=== PATIENT | male | born 1940 | race Caucasian/White ===

== ENCOUNTER 2018-09-02 07:44 | Inpatient (IN) | payer MEDICARE ==
--- NOTE | 2018-09-02 08:28 | ER Document Report ---
ED Fall - General Chief Complaint: Fall Stated Complaint: FALL,LEFT ANKLE PAIN Time Seen by Provider: 09/02/18 07:55 Primary Care Provider: DAVID ELLIS PA [NO LOCAL MD] - Follow up as needed Notes: 78-year-old male to emergency department chief complaint fall. Patient has severe dementia. Taking care of by his elderly . Falls all the time. EMS reportedly goes out to check on them all the time. EMS went out twice this morning. They placed his left ankle in a splint. The states that he has been falling more frequently and possible fever for the last couple of days. he is a DNR. TRAVEL OUTSIDE OF THE [place] IN LAST 30 DAYS: No - HPI Occurred: This morning Where: Home Context: Fell from sitting Associated symptoms: None Location of injury/pain: Ankle - Related data Allergies/Adverse Reactions: naproxen [From Naprosyn] Allergy (Verified 03/23/16 00:46) Past Medical History - General Information source: Patient - Social History Smoking Status: Unknown if Ever Smoked Frequency of alcohol use: None Drug Abuse: None Lives with: Spouse/Significant other Family History: Reviewed & Not Pertinent Patient has suicidal ideation: No Patient has homicidal ideation: No - Past Medical History Cardiac Medical History: Reports: Hx Hypercholesterolemia, Hx Hypertension Pulmonary Medical History: Reports: Hx COPD Neurological Medical History: Reports: Hx Cerebrovascular Accident Endocrine Medical History: Reports: Hx Diabetes Mellitus Type 1, Hx Diabetes Mellitus Type 2 Renal/ Medical History: Denies: Hx Peritoneal Dialysis Past Surgical History: Reports: Hx Appendectomy, Hx Cholecystectomy, Hx Neurologic Surgery - aneaursym clips Review of Systems - Review of Systems -: Yes ROS unobtainable due to patient's medical condition - Due to severe dementia Physical Exam - Vital signs Vitals: Temp Pulse Resp BP 97.7 F 88 20 98/59 L 09/02/18 07:59 09/02/18 07:59 09/02/18 07:59 09/02/18 07:59 Interpretation: Normal - General General appearance: Lethargic In distress: None - HEENT Head: Normocephalic, Atraumatic Eyes: Normal Pupils: PERRL - Respiratory Respiratory status: No respiratory distress Chest status: Nontender Breath sounds: Nonproductive cough Chest palpation: Normal - Cardiovascular Rhythm: Regular Heart sounds: Normal auscultation Murmur: No - Abdominal Inspection: Normal Distension: No distension Bowel sounds: Normal Tenderness: Nontender Organomegaly: No organomegaly - Extremities General upper extremity: Normal inspection, Tender, Normal color. No: Edema General lower extremity: Nontender, Normal ROM, Other - Have some bruising noted to the left ankle.. No: Edema - Neurological Cognition: Confused, Short term memory loss - Skin Skin Temperature: Warm Skin Moisture: Dry Skin Color: Normal Course - Re-evaluation Re-evalutation: 09/02/18 10:08 Laboratory 09/02/18 09/02/18 09/02/18 08:22 08:22 08:42 WBC 13.0 H RBC 4.28 L Hgb 12.6 L Hct 37.4 L MCV 87 MCH 29.4 MCHC 33.6 RDW 14.6 H Plt Count 206 Seg Neutrophils % 82.1 H Lymphocytes % 9.1 L Monocytes % 7.8 Eosinophils % 0.7 Basophils % 0.3 Absolute Neutrophils 10.7 H Absolute Lymphocytes 1.2 Absolute Monocytes 1.0 Absolute Eosinophils 0.1 Absolute Basophils 0.0 Sodium 141.1 Potassium 4.2 Chloride 106 Carbon Dioxide 26 Anion Gap 9 BUN 31 H Creatinine 1.20 Est GFR ( Amer) > 60 Est GFR (Non-Af Amer) 59 L Glucose 168 H Calcium 9.3 Total Bilirubin 0.9 Direct Bilirubin 0.1 Neonat Total Bilirubin Not Reportable Neonat Direct Bilirubin Not Reportable Neonat Indirect Bili Not Reportable AST 25 ALT 32 Alkaline Phosphatase 79 Total Protein 6.1 L Albumin 3.5 Urine Color YELLOW Urine Appearance CLEAR Urine pH 5.0 Ur Specific [place] 1.027 Urine Protein NEGATIVE Urine Glucose (UA) NEGATIVE Urine Ketones TRACE H Urine Blood NEGATIVE Urine Nitrite NEGATIVE Urine Bilirubin NEGATIVE Urine Urobilinogen 2.0 H Ur Leukocyte Esterase NEGATIVE Urine WBC (Auto) 2 Urine RBC (Auto) 0 U Hyaline Cast (Auto) 1 Urine Mucus (Auto) MANY Urine Ascorbic Acid NEGATIVE Ankle X-Ray 09/02/18 08:14 IMPRESSION: NEGATIVE STUDY OF THE LEFT ANKLE. NO RADIOGRAPHIC EVIDENCE OF ACUTE INJURY. Chest X-Ray 09/02/18 08:14 IMPRESSION: Bibasilar pneumonia left greater than right. Cardiac enlargement without failure. Pelvis X-Ray 09/02/18 08:30 IMPRESSION: No acute findings Patient with elevated WBC count, low-grade fever at home and chest x-ray consistent with pneumonia. Will start on antibiotics at this time. Consulted with family member and they are comfortable with this plan. Will admit shortly. - Vital Signs Vital signs: Temp Pulse Resp BP Pulse Ox 97.7 F 88 20 98/59 L 09/02/18 07:59 09/02/18 07:59 09/02/18 07:59 09/02/18 07:59 - Laboratory Result Diagrams: 09/02/18 08:22 09/02/18 08:22 Laboratory results interpreted by me: 09/02/18 09/02/18 09/02/18 08:22 08:22 08:42 WBC 13.0 H RBC 4.28 L Hgb 12.6 L Hct 37.4 L RDW 14.6 H Seg Neutrophils % 82.1 H Lymphocytes % 9.1 L Absolute Neutrophils 10.7 H BUN 31 H Est GFR (Non-Af Amer) 59 L Glucose 168 H Total Protein 6.1 L Urine Ketones TRACE H Urine Urobilinogen 2.0 H Discharge - Discharge Clinical Impression: Pneumonia of both lower lobes Qualifiers: Pneumonia type: due to unspecified organism Qualified Code(s): J18.1 - Lobar pneumonia, unspecified organism Disposition: ADMITTED INPATIENT Admitting Provider: Hospitalist - [facility] Admitted: Medical Floor Referrals: DAVID ELLIS PA [NO LOCAL MD] - Follow up as needed
[2018-09-02 08:33] LABS: ABSOLUTE EOSINOPHILS # (AUTO) 0.1 10^3/uL (0.0-0.6); ABSOLUTE LYMPHOCYTES (AUTO) 1.2 10^3/uL (0.5-4.7); ABSOLUTE NEUT (AUTO) 10.7 10^3/uL (1.7-8.2); BASOPHILS % (AUTO) 0.3 % (0-2); EOSINOPHILS % (AUTO) 0.7 % (0-6); HEMATOCRIT 37.4 % (37.9-51.0); HEMOGLOBIN 12.6 g/dL (13.5-17.0); LYMPHOCYTES % (AUTO) 9.1 % (13-45); MEAN CORPUSCULAR HEMOGLOBIN 29.4 pg (27.0-33.4); MEAN CORPUSCULAR HGB CONC 33.6 g/dL (32.0-36.0); MEAN CORPUSCULAR VOLUME 87 fl (80-97); MONOCYTES % (AUTO) 7.8 % (3-13); PLATELET COUNT 206 10^3/uL (150-450); RED BLOOD COUNT 4.28 10^6/uL (4.35-5.55); RED CELL DISTRIBUTION WIDTH 14.6 % (11.5-14.0); SEGMENTED NEUTROPHILS % (AUTO) 82.1 % (42-78); TOTAL CELLS COUNTED % (AUTO) 100 %
--- NOTE | 2018-09-02 08:48 | RADIOLOGY REPORT (SQ) ---
EXAM DESCRIPTION: ANKLE LEFT AP/LATERAL COMPLETED DATE/TIME: 09/02/2018 8:37 am REASON FOR STUDY: fall pain COMPARISON: None. NUMBER OF VIEWS: Two views. TECHNIQUE: AP and lateral radiographic images acquired of the left ankle. LIMITATIONS: None. FINDINGS: MINERALIZATION: Normal. BONES: No acute fracture or dislocation. No worrisome bone lesions. JOINTS: No effusions. SOFT TISSUES: No soft tissue swelling. No foreign body. OTHER: No other significant finding. IMPRESSION: NEGATIVE STUDY OF THE LEFT ANKLE. NO RADIOGRAPHIC EVIDENCE OF ACUTE INJURY. TECHNICAL DOCUMENTATION: JOB ID: [id number] [employer]- All Rights Reserved Reading location - IP/workstation name: [email or web address]
--- NOTE | 2018-09-02 08:48 | RADIOLOGY REPORT (SQ) ---
EXAM DESCRIPTION: CHEST SINGLE VIEW COMPLETED DATE/TIME: 09/02/2018 8:37 am REASON FOR STUDY: sob, fever COMPARISON: 09/19/2015 EXAM PARAMETERS: NUMBER OF VIEWS: One view. TECHNIQUE: Single frontal radiographic view of the chest acquired. RADIATION DOSE: NA LIMITATIONS: None. FINDINGS: LUNGS AND PLEURA: Interval development of bibasilar opacities. No effusions. MEDIASTINUM AND HILAR STRUCTURES: No masses. Contour normal. HEART AND VASCULAR STRUCTURES: Heart enlarged. BONES: No acute findings. HARDWARE: None in the chest. OTHER: No other significant finding. IMPRESSION: Bibasilar pneumonia left greater than right. Cardiac enlargement without failure. TECHNICAL DOCUMENTATION: JOB ID: [id number] [employer]- All Rights Reserved Reading location - IP/workstation name: [email or web address]
[2018-09-02 08:52] LABS: ALANINE AMINOTRANSFERASE 32 U/L (21-72); ALBUMIN 3.5 g/dL (3.5-5.0); ALKALINE PHOSPHATASE 79 U/L (38-126); ANION GAP 9 (5-19); ASPARTATE AMINO TRANSFERASE 25 U/L (17-59); BILIRUBIN,DIRECT 0.1 mg/dL (0.0-0.4); BILIRUBIN,TOTAL 0.9 mg/dL (0.2-1.3); BLOOD UREA NITROGEN 31 mg/dL (7-20); CALCIUM 9.3 mg/dL (8.4-10.2); CARBON DIOXIDE 26 mmol/L (22-30); CHLORIDE 106 mmol/L (98-107); GLUCOSE 168 mg/dL (75-110); POTASSIUM 4.2 mmol/L (3.6-5.0); SODIUM 141.1 mmol/L (137-145); TOTAL PROTEIN 6.1 g/dL (6.3-8.2)
[2018-09-02 09:16] LABS: APPEARANCE,URINE CLEAR; BILIRUBIN,URINE NEGATIVE (NEGATIVE); COLOR,URINE YELLOW; GLUCOSE, URINE NEGATIVE (NEGATIVE); KETONES,URINE TRACE mg/dL (NEGATIVE); LEUKOCYTE ESTERASE,URINE NEGATIVE (NEGATIVE); NITRITE,URINE NEGATIVE (NEGATIVE); PROTEIN,URINE NEGATIVE (NEGATIVE); URINE SPECIFIC GRAVITY 1.027
--- NOTE | 2018-09-02 09:23 | RADIOLOGY REPORT (SQ) ---
EXAM DESCRIPTION: PELVIS AP COMPLETED DATE/TIME: 09/02/2018 9:11 am REASON FOR STUDY: fall, pain COMPARISON: None. NUMBER OF VIEWS: One view TECHNIQUE: AP Pelvis LIMITATIONS: None. FINDINGS: MINERALIZATION: Osteopenia. HIPS: No acute fracture or dislocation. No worrisome bone lesions. PELVIS AND SACRUM: No acute fracture or dislocation. No worrisome bone lesions. PUBIS AND ISCHIUM: No acute fracture. LOWER LUMBAR SPINE: Marked degenerative changes. SOFT TISSUES: Aortic stent graft. OTHER: No other significant finding. IMPRESSION: No acute findings COMMENT: Pelvic fractures are often occult on plain radiographs. If strong clinical suspicion for f racture, recommend CT or MR. TECHNICAL DOCUMENTATION: JOB ID: [id number] [facility] [employer]- All Rights Reserved Reading location - IP/workstation name: [email or web address]
[2018-09-02] MEDS ORDERED: AZITHROMYCIN INJ 500 MG VIAL IV ONE (10:07)
[2018-09-02] MEDS ORDERED: CEFTRIAXONE INJ 1000 MG VIAL IV ONE (10:07)
[2018-09-02] MEDS ORDERED: NORMAL SALINE 1000 ML 1,000 ML IV ONE (10:16)
[2018-09-02] MEDS ORDERED: GUAIFENESIN SYRP 200 MG/10 ML UDC PO PRN (12:14)
[2018-09-02] MEDS ORDERED: ACETAMINOPHEN 325 MG TABLET PO PRN (12:14)
[2018-09-02] MEDS ORDERED: ALBUTEROL SULFATE 0.083% NEB 2.5 MG/3 ML AMPUL NEB PRN (12:14)
[2018-09-02] MEDS ORDERED: DEXTROSE 40% GEL 15 GM TUBE PO PRN ×2 (12:19)
[2018-09-02] MEDS ORDERED: DEXTROSE 50%-WATER 25 GM/50 ML DISP.SYRIN IV PRN ×2 (12:19)
[2018-09-02] MEDS ORDERED: GLUCAGON,HUMAN RECOMB 1 MG INJ IM PRN (12:19)
[2018-09-02] MEDS ORDERED: IBUPROFEN 400 MG TABLET PO PRN (12:37)
--- NOTE | 2018-09-02 12:39 | PDOC H&P ---
History of Present Illness Admission Date/PCP: 09/02/18 10:43 Patient complains of: fall, increased fatigue History of Present Illness: ANAND HORVATH is a 78 year old male with a past medical history of advanced dementia, CVA, brain aneurysms, AAA, hypertension, hyperlipidemia, DM 2, GERD, and chronic back pain presented to the emergency department by EMS after a fall at home. The patient's reports that the patient has fallen 4-5 times over the previous week. She reports that he has had increased lethargy, decreased appetite times 4 days, and little fluid intake over the last 24 hours. She reports that he has been running a low-grade temperature (100.2) and has had a nonproductive cough for 1-2 days. Evaluation in the emergency department revealed bibasilar pneumonia with leukocytosis (WBCs 13), baseline anemia (Hgb 12.6), unremarkable chemistry other than slightly elevated BUN (31), normal lactic acid, unremarkable urinalysis, and normal ankle and pelvic x-rays. He is referred to the hospitalist service for admission and management of pneumonia. The patient's , daughter, son-in-law expressed interest in meeting with a social work team to discuss palliative/hospice services as the patient's needs are now beginning to exceed his 's ability to care for him at home. They confirmed DNR/DNI status and request focus on comfort measures with addition of IV antibiotic therapies as indicated. 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 Endocrine Medical History: Reports: Diabetes Mellitus Type 2 Renal/ Medical History: Reports: None Malignancy Medical History: Reports: None GI Medical History: Reports: Gastroesophageal Reflux Disease Musculoskeltal Medical History: Reports: Arthritis Psychiatric Medical History: Reports: Dementia Traumatic Medical History: Reports: None Hematology: Reports: Anemia Infectious Medical History: Reports: None Past Surgical History Past Surgical History: Reports: Appendectomy, Cholecystectomy Social History Information Source: Relative Lives with: Spouse/Significant other Smoking Status: Unknown if Ever Smoked Frequency of Alcohol Use: None Hx Recreational Drug Use: No Drugs: None Hx Prescription Drug Abuse: No - Advance Directive Resuscitation Status: Do Not Resuscitate Surrogate healthcare decision maker:: The patient's , Melly Horvath, Family History Family History: Reviewed & Not Pertinent Parental Family History Reviewed: Yes Children Family History Reviewed: Yes Sibling(s) Family History Reviewed.: Yes Medication/Allergy Home Medications: Atorvastatin Calcium 10 mg PO DAILY 03/22/16 Collagenase Clostridium Hist. [Santyl Ointment 30 gm] 1 applic TP DAILY 03/22/16 Metformin HCl 500 mg PO DAILY 03/22/16 Omeprazole 20 mg PO DAILY 03/22/16 Tamsulosin HCl 0.4 mg PO DAILY 03/22/16 Verapamil HCl [Verapamil ER] 240 mg PO DAILY 03/22/16 Allergies/Adverse Reactions: naproxen [From Naprosyn] Allergy (Verified 03/23/16 00:46) Review of Systems ROS unobtainable: Due to mental status Physical Exam Vital Signs: Temp Pulse Resp BP Pulse Ox 97.7 F 88 19 134/74 H 94 09/02/18 07:59 09/02/18 07:59 09/02/18 11:31 09/02/18 11:31 09/02/18 11:31 Intake & Output 09/01/18 09/02/18 09/03/18 06:59 06:59 06:59 Weight 80 kg General appearance: PRESENT: disheveled, mild distress - Lethargic, acutely ill- appearing, well-developed, well-nourished - Overweight Head exam: PRESENT: atraumatic, normocephalic Eye exam: PRESENT: conjunctiva pink, EOMI, PERRLA. ABSENT: scleral icterus Ear exam: PRESENT: normal external ear exam Mouth exam: PRESENT: moist, tongue midline Neck exam: ABSENT: carotid bruit, JVD, lymphadenopathy, thyromegaly Respiratory exam: PRESENT: accessory muscle use, prolonged expiratory phas, rhonchi - Throughout, symmetrical, tachypnea. ABSENT: rales, wheezes Cardiovascular exam: PRESENT: RRR, +S1, +S2. ABSENT: diastolic murmur, rubs, systolic murmur Pulses: PRESENT: normal dorsalis pedis pul Vascular exam: PRESENT: normal capillary refill GI/Abdominal exam: PRESENT: normal bowel sounds, soft. ABSENT: distended, guarding, mass, organolmegaly, rebound, tenderness Rectal exam: PRESENT: deferred Extremities exam: PRESENT: full ROM. ABSENT: calf tenderness, clubbing, pedal edema Neurological exam: PRESENT: oriented to person, CN II-XII grossly intact, other - Arousable, oriented to self, answers simple questions appropriately. ABSENT: motor sensory deficit Psychiatric exam: PRESENT: appropriate affect, normal mood. ABSENT: homicidal ideation, suicidal ideation Skin exam: PRESENT: dry, intact, warm. ABSENT: cyanosis, rash Results Laboratory Results: 09/02/18 08:22 09/02/18 08:22 09/02/18 09/02/18 09/02/18 08:22 08:22 08:42 WBC 13.0 H RBC 4.28 L Hgb 12.6 L Hct 37.4 L MCV 87 MCH 29.4 MCHC 33.6 RDW 14.6 H Plt Count 206 Seg Neutrophils % 82.1 H Lymphocytes % 9.1 L Monocytes % 7.8 Eosinophils % 0.7 Basophils % 0.3 Absolute Neutrophils 10.7 H Absolute Lymphocytes 1.2 Absolute Monocytes 1.0 Absolute Eosinophils 0.1 Absolute Basophils 0.0 Sodium 141.1 Potassium 4.2 Chloride 106 Carbon Dioxide 26 Anion Gap 9 BUN 31 H Creatinine 1.20 Est GFR ( Amer) > 60 Est GFR (Non-Af Amer) 59 L Glucose 168 H Lactic Acid Calcium 9.3 Total Bilirubin 0.9 AST 25 ALT 32 Alkaline Phosphatase 79 Total Protein 6.1 L Albumin 3.5 Urine Color YELLOW Urine Appearance CLEAR Urine pH 5.0 Ur Specific [place] 1.027 Urine Protein NEGATIVE Urine Glucose (UA) NEGATIVE Urine Ketones TRACE H Urine Blood NEGATIVE Urine Nitrite NEGATIVE Ur Leukocyte Esterase NEGATIVE Urine WBC (Auto) 2 Urine RBC (Auto) 0 09/02/18 10:40 WBC RBC Hgb Hct MCV MCH MCHC RDW Plt Count Seg Neutrophils % Lymphocytes % Monocytes % Eosinophils % Basophils % Absolute Neutrophils Absolute Lymphocytes Absolute Monocytes Absolute Eosinophils Absolute Basophils Sodium Potassium Chloride Carbon Dioxide Anion Gap BUN Creatinine Est GFR ( Amer) Est GFR (Non-Af Amer) Glucose Lactic Acid 1.2 Calcium Total Bilirubin AST ALT Alkaline Phosphatase Total Protein Albumin Urine Color Urine Appearance Urine pH Ur Specific [place] Urine Protein Urine Glucose (UA) Urine Ketones Urine Blood Urine Nitrite Ur Leukocyte Esterase Urine WBC (Auto) Urine RBC (Auto) Impressions: Ankle X-Ray 09/02/18 08:14 IMPRESSION: NEGATIVE STUDY OF THE LEFT ANKLE. NO RADIOGRAPHIC EVIDENCE OF ACUTE INJURY. Chest X-Ray 09/02/18 08:14 IMPRESSION: Bibasilar pneumonia left greater than right. Cardiac enlargement without failure. Pelvis X-Ray 09/02/18 08:30 IMPRESSION: No acute findings Assessment & Plan - Diagnosis (1) Pneumonia of both lower lobes Qualifiers: Pneumonia type: due to unspecified organism Qualified Code(s): J18.1 - Lobar pneumonia, unspecified organism Is this a current diagnosis for this admission?: Yes Plan: The patient is admitted to the medical floor. He is provided supplemental oxygen as needed to maintain his oxygen saturations >89%. Blood cultures are pending. He is empirically placed on IV azithromycin and Rocephin for treatment of community-acquired pneumonia. He is provided scheduled and as needed nebulizer treatments. Mucinex scheduled twice daily with Robitussin cough syrup as needed. Incentive spirometer to bedside. (2) Dementia Is this a current diagnosis for this admission?: Yes Plan: At baseline, patient is oriented to self and occasionally family members. He has been dependent and required 24-hour supervision for approximately 3 years due to his progressively worsening dementia. He has had a steep decline over the previous 6 months. Family member states that he often makes bizarre statements such as "there are people living in the bed." He has had several falls at home; requiring EMS response for assistance. They note that he is beginning to exceed his 's ability to care for him at home. Confirmed DNR/DNI status. They provided the MOST form for review. We will consult discharge planning; family express some interest in palliative care/hospice services. Supportive care; fall risk. Bed alarm. states that we may restrain as necessary to prevent falls (has required this in the past); consider sitter or roll belt. (3) Left ankle pain Qualifiers: Chronicity: acute Qualified Code(s): M25.572 - Pain in left ankle and joints of left foot Is this a current diagnosis for this admission?: Yes Plan: Secondary to fall. X-rays negative. Ice, elevate, darrel wrap for comfort. Tylenol or motrin as needed for pain. (4) Diabetes Qualifiers: Diabetes mellitus type: type 2 Is this a current diagnosis for this admission?: Yes Plan: Hold metformin while inpatient. He is placed on a consistent carb diet. Accu-Cheks before meals and at bedtime with Humalog for sliding scale coverage. (5) Falls Is this a current diagnosis for this admission?: Yes Plan: As above. Consider physical therapy consultation as patient's acute illness improves. - Time Time Spent: 50 to 70 Minutes Medications reviewed and adjusted accordingly: Yes - Inpatient Certification Based on my medical assessment, after consideration of the patient's comorbidities, presenting symptoms, or acuity I expect that the services needed warrant INPATIENT care.: Yes I certify that my determination is in accordance with my understanding of Medicare's requirements for reasonable and necessary INPATIENT services [42 CFR 412.3e].: Yes Medical Necessity: Need Close Monitoring Due to Risk of Patient Decompensation, Need for Nebulizer Therapy and Monitoring of Response, Need for IV Antibiotics
[2018-09-02] MEDS: HEPARIN SOD (PORCINE) 5,000 UNIT/ML 1 ML SYRINGE SUBCUT SCH ×2 (15:48→21:52)
[2018-09-02] MEDS ORDERED: AZITHROMYCIN 500 MG in DEXTROSE 5%-WATER 250 ML IV ONE (16:00)
[2018-09-02] MEDS: IPRATROPIUM/ALBUTEROL 0.5-2.5 MG/3 ML AMPUL NEB SCH (16:12)
[2018-09-02] MEDS: INSULIN LISPRO 100 UNIT/ML 3 ML VIAL SUBCUT SCH ×2 (16:20→21:47)
[2018-09-02] MEDS: NORMAL SALINE 1000 ML 1,000 ML IV PRN (16:20)
[2018-09-02] MEDS: LIDOCAINE 5% (700 MG) TRANSDERMAL ADH..PATCH TP SCH (17:19)
[2018-09-02] MEDS: FAMOTIDINE 20 MG TABLET PO SCH (21:52)
[2018-09-02] MEDS: TRAZODONE HCL 50 MG TABLET PO SCH (21:52)
[2018-09-02] MEDS: GUAIFENESIN 600 MG TABLET.SA PO SCH (21:52)
[2018-09-02] MEDS ORDERED: HALOPERIDOL 0.5 MG TABLET PO SCH (22:00)
[2018-09-02] MEDS ORDERED: MELATONIN 5 MG TABLET PO SCH (22:00)
[2018-09-02] MEDS ORDERED: ATORVASTATIN CALCIUM 10 MG TABLET PO SCH (22:00)
[2018-09-03] MEDS: IPRATROPIUM/ALBUTEROL 0.5-2.5 MG/3 ML AMPUL NEB SCH ×3 (00:13→15:55)
[2018-09-03 04:46] LABS: ABSOLUTE EOSINOPHILS # (AUTO) 0.2 10^3/uL (0.0-0.6); ABSOLUTE LYMPHOCYTES (AUTO) 1.8 10^3/uL (0.5-4.7); ABSOLUTE MONOCYTES (AUTO) 0.6 10^3/uL (0.1-1.4); ABSOLUTE NEUT (AUTO) 4.8 10^3/uL (1.7-8.2); BASOPHILS % (AUTO) 0.6 % (0-2); EOSINOPHILS % (AUTO) 2.6 % (0-6); HEMATOCRIT 32.9 % (37.9-51.0); HEMOGLOBIN 11.4 g/dL (13.5-17.0); LYMPHOCYTES % (AUTO) 24.4 % (13-45); MEAN CORPUSCULAR HGB CONC 34.6 g/dL (32.0-36.0); MEAN CORPUSCULAR VOLUME 87 fl (80-97); MONOCYTES % (AUTO) 8.5 % (3-13); PLATELET COUNT 178 10^3/uL (150-450); RED CELL DISTRIBUTION WIDTH 14.5 % (11.5-14.0); SEGMENTED NEUTROPHILS % (AUTO) 63.9 % (42-78); TOTAL CELLS COUNTED % (AUTO) 100 %; WHITE BLOOD COUNT 7.4 10^3/uL (4.0-10.5)
[2018-09-03 05:09] LABS: ANION GAP 6 (5-19); BLOOD UREA NITROGEN 17 mg/dL (7-20); CALCIUM 8.2 mg/dL (8.4-10.2); CARBON DIOXIDE 23 mmol/L (22-30); CHLORIDE 111 mmol/L (98-107); GLUCOSE 109 mg/dL (75-110); POTASSIUM 3.6 mmol/L (3.6-5.0); SODIUM 139.6 mmol/L (137-145)
[2018-09-03] MEDS: HEPARIN SOD (PORCINE) 5,000 UNIT/ML 1 ML SYRINGE SUBCUT SCH ×3 (05:54→22:05)
[2018-09-03] MEDS: NORMAL SALINE 1000 ML 1,000 ML IV PRN (06:30)
[2018-09-03] MEDS: INSULIN LISPRO 100 UNIT/ML 3 ML VIAL SUBCUT SCH ×3 (09:57→17:17)
[2018-09-03] MEDS: ASPIRIN 81 MG TABLET, CHEWABLE PO SCH (10:00)
[2018-09-03] MEDS: TAMSULOSIN HCL 0.4 MG CAP.SR.24H PO SCH (10:00)
[2018-09-03] MEDS: VERAPAMIL HCL 240 MG TABLET.SA PO SCH (10:00)
[2018-09-03] MEDS: LOSARTAN POTASSIUM 50 MG TABLET PO SCH (10:00)
[2018-09-03] MEDS: FAMOTIDINE 20 MG TABLET PO SCH (10:01)
[2018-09-03] MEDS: GUAIFENESIN 600 MG TABLET.SA PO SCH (10:01)
[2018-09-03] MEDS: CHOLECALCIFEROL (D3) 1,000 UNIT TABLET PO SCH (10:01)
[2018-09-03] MEDS ORDERED: ATROPINE SULFATE 1% OPH SOLN 5 ML BOTTLE SL PRN (10:15)
[2018-09-03] MEDS ORDERED: ACETAMINOPHEN SOLN 325 MG/10.15 ML UDCUP PO PRN (10:19)
[2018-09-03] MEDS ORDERED: ACETAMINOPHEN 650 MG SUPP.RECT PR PRN (10:19)
[2018-09-03] MEDS: AZITHROMYCIN 500 MG in DEXTROSE 5%-WATER 250 ML IV SCH (10:56)
[2018-09-03] MEDS: LIDOCAINE 5% (700 MG) TRANSDERMAL ADH..PATCH TP SCH (11:39)
--- NOTE | 2018-09-03 12:20 | PDOC PROGRESS REPORT ---
Subjective Progress Note for:: 09/03/18 Subjective:: The patient s a 78 year old male with a past medical history of advanced dementia, CVA, brain aneurysms, AAA, hypertension, hyperlipidemia, DM 2, GERD, and chronic back pain who was admitted 09/02/18 for bibasilar pneumonia. He is on morning rounds; family is not present at this time. He is found resting in bed on room air. Unfortunately, due to his advanced dementia and multiple attempts to remove his IV, he has required soft limb restraints. He appears to be resting comfortably, though with loud wet upper airway breathing sounds, rhinorrhea, and frequent cough. He is awake and alert though disorientated. He attempts to answer questions; but with incoherent speech. He does not follow directions today. ROS is limited secondary to mental status. Nursing requesting medication adjustments; has not been able to safely swallow crushed medications. Also report copious oral secretions; frequently requires suctioning with [place]. Reason For Visit: PNEUMONIA Physical Exam Vital Signs: Temp Pulse Resp BP Pulse Ox 97.9 F 79 18 116/88 H 92 09/03/18 08:27 09/03/18 08:40 09/03/18 08:40 09/03/18 08:27 09/03/18 08:40 Intake & Output 09/02/18 09/03/18 09/04/18 06:59 06:59 06:59 Intake Total 2300 250 Balance 2300 250 Weight 64.5 kg General appearance: PRESENT: no acute distress, disheveled, well-developed, well-nourished, other - Acutely ill-appearing Head exam: PRESENT: atraumatic, normocephalic Eye exam: PRESENT: conjunctiva pink, EOMI, PERRLA. ABSENT: scleral icterus Ear exam: PRESENT: normal external ear exam Mouth exam: PRESENT: moist, tongue midline Neck exam: ABSENT: carotid bruit, JVD, lymphadenopathy, thyromegaly Respiratory exam: PRESENT: rhonchi - Throughout, symmetrical, unlabored, other - Frequent cough. ABSENT: rales, wheezes Cardiovascular exam: PRESENT: RRR, +S1, +S2. ABSENT: diastolic murmur, rubs, systolic murmur Pulses: PRESENT: normal dorsalis pedis pul Vascular exam: PRESENT: normal capillary refill GI/Abdominal exam: PRESENT: normal bowel sounds, soft. ABSENT: distended, guarding, mass, organolmegaly, rebound, tenderness Rectal exam: PRESENT: deferred Extremities exam: PRESENT: full ROM. ABSENT: calf tenderness, clubbing, pedal edema Neurological exam: PRESENT: alert, altered, awake, CN II-XII grossly intact, other - Incoherent speech, unable to follow commands today. ABSENT: motor sensory deficit Psychiatric exam: PRESENT: appropriate affect, normal mood. ABSENT: homicidal ideation, suicidal ideation Skin exam: PRESENT: dry, intact, warm. ABSENT: cyanosis, rash Results Laboratory Results: 09/03/18 04:25 09/03/18 04:25 09/03/18 09/03/18 04:25 04:25 WBC 7.4 RBC 3.80 L Hgb 11.4 L Hct 32.9 L MCV 87 MCH 30.0 MCHC 34.6 RDW 14.5 H Plt Count 178 Seg Neutrophils % 63.9 Lymphocytes % 24.4 Monocytes % 8.5 Eosinophils % 2.6 Basophils % 0.6 Absolute Neutrophils 4.8 Absolute Lymphocytes 1.8 Absolute Monocytes 0.6 Absolute Eosinophils 0.2 Absolute Basophils 0.0 Sodium 139.6 Potassium 3.6 Chloride 111 H Carbon Dioxide 23 Anion Gap 6 BUN 17 Creatinine 0.79 Est GFR ( Amer) > 60 Est GFR (Non-Af Amer) > 60 Glucose 109 Calcium 8.2 L Impressions: Ankle X-Ray 09/02/18 08:14 IMPRESSION: NEGATIVE STUDY OF THE LEFT ANKLE. NO RADIOGRAPHIC EVIDENCE OF ACUTE INJURY. Chest X-Ray 09/02/18 08:14 IMPRESSION: Bibasilar pneumonia left greater than right. Cardiac enlargement without failure. Pelvis X-Ray 09/02/18 08:30 IMPRESSION: No acute findings Assessment & Plan - Diagnosis (1) Pneumonia of both lower lobes Qualifiers: Pneumonia type: due to unspecified organism Qualified Code(s): J18.1 - Lobar pneumonia, unspecified organism Is this a current diagnosis for this admission?: Yes Plan: Chest x-ray revealed bibasilar pneumonia. WBCs 13--> 7.4, afebrile Blood cultures are pending. Sputum culture not yet obtained. The patient is admitted to the medical floor. He is provided supplemental oxygen as needed to maintain his oxygen saturations >89%. He is empirically placed on IV azithromycin and Rocephin for treatment of community-acquired pneumonia; will adjust as cultures result. He is provided scheduled and as needed nebulizer treatments. Scheduled Robitussin cough syrup as patient is unable to swallow mucinex. Judicious use of Atropine sublingual drops for management of copious oral secretions. Chest physiotherapy. Incentive spirometer to bedside. (2) Dementia Is this a current diagnosis for this admission?: Yes Plan: At baseline, patient is oriented to self and occasionally family members. He has been dependent and required 24-hour supervision for approximately 3 years due to his progressively worsening dementia. He has had a steep decline over the previous 6 months. Family member states that he often makes bizarre statem ents such as "there are people living in the bed." He has had several falls at home; requiring EMS response for assistance. They note that he is beginning to exceed his 's ability to care for him at home. Confirmed DNR/DNI status. They provided the MOST form for review. We will consult discharge planning; family express some interest in palliative care/hospice services. Supportive care; fall risk. Bed alarm. Soft limb restraints secondary to delirium with attempts to remove IV. Clear liquid diet with aspiration precautions; will advance as safety allows. (3) Left ankle pain Qualifiers: Chronicity: acute Qualified Code(s): M25.572 - Pain in left ankle and joints of left foot Is this a current diagnosis for this admission?: Yes Plan: Secondary to fall. X-rays negative. Ice, elevate, darrel wrap for comfort. Lidoderm patches and Tylenol as needed for pain. (4) Diabetes Qualifiers: Diabetes mellitus type: type 2 Is this a current diagnosis for this admission?: Yes Plan: Hold metformin while inpatient. He is placed on a consistent carb diet. Accu-Cheks before meals and at bedtime with Humalog for sliding scale coverage. Hypoglycemia protocol in place. (5) Falls Is this a current diagnosis for this admission?: Yes Plan: As above. Consider physical therapy consultation as patient's acute illness improves. - Time Time Spent with patient: 15-24 minutes Medications reviewed and adjusted accordingly: Yes Anticipated discharge: Other - Dispo unclear; home vs SNF vs hospice. D/c category planner consulted.
[2018-09-03] MEDS: GUAIFENESIN SYRP 200 MG/10 ML UDC PO SCH ×3 (13:25→22:05)
[2018-09-03] MEDS: CEFTRIAXONE 1 GM/D5W RTU 1 GM/50 ML RTUPB IV SCH (13:49)
[2018-09-03] MEDS: TRAZODONE HCL 50 MG TABLET PO SCH (22:04)
[2018-09-04] MEDS: INSULIN LISPRO 100 UNIT/ML 3 ML VIAL SUBCUT SCH ×5 (00:06→22:06)
[2018-09-04] MEDS: IPRATROPIUM/ALBUTEROL 0.5-2.5 MG/3 ML AMPUL NEB SCH ×3 (00:47→16:07)
[2018-09-04] MEDS: HALOPERIDOL LACTATE INJ 5 MG/1 ML VIAL IV PRN (01:53)
[2018-09-04] MEDS: LANSOPRAZOLE 30 MG TAB.RAP.DR PO SCH (05:11)
[2018-09-04] MEDS: HEPARIN SOD (PORCINE) 5,000 UNIT/ML 1 ML SYRINGE SUBCUT SCH ×3 (05:12→22:51)
[2018-09-04 06:43] LABS: HEMATOCRIT 35.3 % (37.9-51.0); HEMOGLOBIN 12.1 g/dL (13.5-17.0); MEAN CORPUSCULAR HEMOGLOBIN 29.1 pg (27.0-33.4); MEAN CORPUSCULAR HGB CONC 34.2 g/dL (32.0-36.0); MEAN CORPUSCULAR VOLUME 85 fl (80-97); PLATELET COUNT 198 10^3/uL (150-450); RED BLOOD COUNT 4.15 10^6/uL (4.35-5.55); RED CELL DISTRIBUTION WIDTH 14.3 % (11.5-14.0); WHITE BLOOD COUNT 7.1 10^3/uL (4.0-10.5)
[2018-09-04 07:08] LABS: ANION GAP 11 (5-19); BLOOD UREA NITROGEN 12 mg/dL (7-20); CALCIUM 8.5 mg/dL (8.4-10.2); CARBON DIOXIDE 20 mmol/L (22-30); CHLORIDE 107 mmol/L (98-107); GLUCOSE 92 mg/dL (75-110); POTASSIUM 3.9 mmol/L (3.6-5.0); SODIUM 137.5 mmol/L (137-145)
[2018-09-04] MEDS: HYDRALAZINE HCL INJ/PF 20 MG/1 ML SDV IV PRN (07:47)
[2018-09-04] MEDS: NORMAL SALINE 1000 ML 1,000 ML IV PRN ×2 (09:19→14:53)
[2018-09-04] MEDS: AZITHROMYCIN 500 MG in DEXTROSE 5%-WATER 250 ML IV SCH (09:20)
[2018-09-04] MEDS: LIDOCAINE 5% (700 MG) TRANSDERMAL ADH..PATCH TP SCH (09:23)
[2018-09-04] MEDS: CHOLECALCIFEROL (D3) 1,000 UNIT TABLET PO SCH (09:24)
[2018-09-04] MEDS: LOSARTAN POTASSIUM 50 MG TABLET PO SCH (09:24)
[2018-09-04] MEDS: GUAIFENESIN SYRP 200 MG/10 ML UDC PO SCH ×4 (09:24→22:51)
[2018-09-04] MEDS: TAMSULOSIN HCL 0.4 MG CAP.SR.24H PO SCH (09:24)
[2018-09-04] MEDS: ASPIRIN 81 MG TABLET, CHEWABLE PO SCH (09:24)
[2018-09-04] MEDS: VERAPAMIL HCL 240 MG TABLET.SA PO SCH (09:25)
[2018-09-04] MEDS: CEFTRIAXONE 1 GM/D5W RTU 1 GM/50 ML RTUPB IV SCH (11:47)
--- NOTE | 2018-09-04 22:16 | PDOC PROGRESS REPORT ---
Subjective Progress Note for:: 09/04/18 Subjective:: The patient s a 78 year old male with a past medical history of advanced dementia, CVA, brain aneurysms, AAA, hypertension, hyperlipidemia, DM 2, GERD, and chronic back pain who was admitted 09/02/18 for bibasilar pneumonia. The patient was seen this morning on rounds. He is resting in bed. He is able to speak, but his speech is garbled. He answers most questions appropriately, but has difficulty with complex questioning - why are you at the hospital? Plan to continue antibiotic therapy then discharge patient home with hospice Reason For Visit: PNEUMONIA Physical Exam Vital Signs: Temp Pulse Resp BP Pulse Ox 99.8 F 85 20 151/89 H 93 09/04/18 19:56 09/04/18 19:56 09/04/18 19:56 09/04/18 19:56 09/04/18 19:56 Intake & Output 09/03/18 09/04/18 09/05/18 06:59 06:59 06:59 Intake Total 2300 1750 800 Output Total 900 Balance 2300 850 800 Weight 64.5 kg 64.5 kg General appearance: PRESENT: well-developed, well-nourished Eye exam: PRESENT: conjunctiva pink, PERRLA Mouth exam: PRESENT: moist Teeth exam: PRESENT: poor dentation Neck exam: PRESENT: full ROM Respiratory exam: PRESENT: clear to auscultation soraida, symmetrical, unlabored, other - UPPER AIRWAY SECRETIONS Cardiovascular exam: PRESENT: +S1, +S2 Pulses: PRESENT: normal radial pulses, normal dorsalis pedis pul Vascular exam: PRESENT: normal capillary refill GI/Abdominal exam: PRESENT: soft. ABSENT: distended, tenderness Rectal exam: PRESENT: deferred Extremities exam: PRESENT: full ROM Musculoskeletal exam: ABSENT: ambulatory Neurological exam: PRESENT: awake. ABSENT: oriented to person, oriented to place, oriented to time, oriented to situation - xxxxxxxx Psychiatric exam: ABSENT: appropriate affect Skin exam: PRESENT: dry, intact Results Laboratory Results: 09/04/18 06:03 09/04/18 06:03 09/04/18 09/04/18 06:03 06:03 WBC 7.1 RBC 4.15 L Hgb 12.1 L Hct 35.3 L MCV 85 MCH 29.1 MCHC 34.2 RDW 14.3 H Plt Count 198 Sodium 137.5 Potassium 3.9 Chloride 107 Carbon Dioxide 20 L Anion Gap 11 BUN 12 Creatinine 0.77 Est GFR ( Amer) > 60 Est GFR (Non-Af Amer) > 60 Glucose 92 Calcium 8.5 Impressions: Ankle X-Ray 09/02/18 08:14 IMPRESSION: NEGATIVE STUDY OF THE LEFT ANKLE. NO RADIOGRAPHIC EVIDENCE OF ACUTE INJURY. Chest X-Ray 09/02/18 08:14 IMPRESSION: Bibasilar pneumonia left greater than right. Cardiac enlargement without failure. Pelvis X-Ray 09/02/18 08:30 IMPRESSION: No acute findings Status: Imported from PACS Assessment & Plan - Diagnosis (1) Dementia Is this a current diagnosis for this admission?: Yes (2) Diabetes Qualifiers: Diabetes mellitus type: type 2 Is this a current diagnosis for this admission?: Yes Plan: Hold metformin while inpatient. He is placed on a consistent carb diet. Accu-Cheks before meals and at bedtime with Humalog for sliding scale coverage. Hypoglycemia protocol in place. (3) Pneumonia of both lower lobes Qualifiers: Pneumonia type: due to unspecified organism Qualified Code(s): J18.1 - Lobar pneumonia, unspecified organism Is this a current diagnosis for this admission?: Yes (4) Left ankle pain Qualifiers: Chronicity: acute Qualified Code(s): M25.572 - Pain in left ankle and joints of left foot Is this a current diagnosis for this admission?: Yes Plan: Secondary to fall. X-rays negative. Ice, elevate, darrel wrap for comfort. Lidoderm patches and Tylenol as needed for pain. - Time Time Spent with patient: 15-24 minutes Medications reviewed and adjusted accordingly: Yes Anticipated discharge: Hospice - Inpatient Certification Based on my medical assessment, after consideration of the patient's comorbidities, presenting symptoms, or acuity I expect that the services needed warrant INPATIENT care.: Yes I certify that my determination is in accordance with my understanding of Medicare's requirements for reasonable and necessary INPATIENT services [42 CFR 412.3e].: Yes Medical Necessity: Risk of Complication if Not Cared For in Hospital
[2018-09-04] MEDS: TRAZODONE HCL 50 MG TABLET PO SCH (22:51)
[2018-09-05] MEDS: IPRATROPIUM/ALBUTEROL 0.5-2.5 MG/3 ML AMPUL NEB SCH ×4 (00:24→23:57)
[2018-09-05] MEDS: NORMAL SALINE 1000 ML 1,000 ML IV PRN ×2 (03:52→19:01)
[2018-09-05] MEDS: LANSOPRAZOLE 30 MG TAB.RAP.DR PO SCH (05:38)
[2018-09-05] MEDS: HEPARIN SOD (PORCINE) 5,000 UNIT/ML 1 ML SYRINGE SUBCUT SCH ×3 (05:38→23:18)
[2018-09-05] MEDS: HYDRALAZINE HCL INJ/PF 20 MG/1 ML SDV IV PRN ×2 (07:50→23:34)
[2018-09-05] MEDS: INSULIN LISPRO 100 UNIT/ML 3 ML VIAL SUBCUT SCH ×4 (08:00→21:58)
[2018-09-05] MEDS: GUAIFENESIN SYRP 200 MG/10 ML UDC PO SCH ×4 (09:48→23:35)
[2018-09-05] MEDS: ASPIRIN 81 MG TABLET, CHEWABLE PO SCH (09:48)
[2018-09-05] MEDS: TAMSULOSIN HCL 0.4 MG CAP.SR.24H PO SCH (09:48)
[2018-09-05] MEDS: CHOLECALCIFEROL (D3) 1,000 UNIT TABLET PO SCH (09:48)
[2018-09-05] MEDS: LOSARTAN POTASSIUM 50 MG TABLET PO SCH (09:48)
[2018-09-05] MEDS: VERAPAMIL HCL 240 MG TABLET.SA PO SCH (09:49)
[2018-09-05] MEDS: AZITHROMYCIN 500 MG in DEXTROSE 5%-WATER 250 ML IV SCH (09:50)
[2018-09-05] MEDS: LIDOCAINE 5% (700 MG) TRANSDERMAL ADH..PATCH TP SCH (09:57)
[2018-09-05] MEDS: CEFTRIAXONE 1 GM/D5W RTU 1 GM/50 ML RTUPB IV SCH (11:51)
--- NOTE | 2018-09-05 21:18 | PDOC PROGRESS REPORT ---
Subjective Progress Note for:: 09/05/18 Subjective:: The patient s a 78 year old male with a past medical history of advanced dementia, CVA, brain aneurysms, AAA, hypertension, hyperlipidemia, DM 2, GERD, and chronic back pain who was admitted 09/02/18 for bibasilar pneumonia. The patient was seen this morning on rounds. He is asleep in bed, family at bedside. Lungs are clear to auscultation, no longer struggling with upper airway secretions. Plan to discharge patient home with hospice tomorrow. Will continue PO an tibiotics at home. Reason For Visit: PNEUMONIA Physical Exam Vital Signs: Temp Pulse Resp BP Pulse Ox 98.9 F 102 H 16 132/93 H 92 09/05/18 16:10 09/05/18 16:13 09/05/18 16:13 09/05/18 16:10 09/05/18 16:13 Intake & Output 09/04/18 09/05/18 09/06/18 06:59 06:59 06:59 Intake Total 1750 1824 2131 Output Total 900 775 Balance 850 1049 2131 Weight 64.5 kg 85.5 kg General appearance: PRESENT: no acute distress, well-developed, well-nourished Eye exam: PRESENT: conjunctiva pink Mouth exam: PRESENT: moist, tongue midline Teeth exam: PRESENT: poor dentation Respiratory exam: PRESENT: clear to auscultation soraida, symmetrical, unlabored Pulses: PRESENT: normal radial pulses GI/Abdominal exam: PRESENT: soft. ABSENT: tenderness Rectal exam: PRESENT: deferred Extremities exam: PRESENT: full ROM Musculoskeletal exam: PRESENT: full ROM. ABSENT: ambulatory Neurological exam: PRESENT: other. ABSENT: alert, awake, oriented to person, oriented to place, oriented to time, oriented to situation Skin exam: PRESENT: dry Results Laboratory Results: 09/04/18 06:03 09/04/18 06:03 Impressions: Ankle X-Ray 09/02/18 08:14 IMPRESSION: NEGATIVE STUDY OF THE LEFT ANKLE. NO RADIOGRAPHIC EVIDENCE OF ACUTE INJURY. Chest X-Ray 09/02/18 08:14 IMPRESSION: Bibasilar pneumonia left greater than right. Cardiac enlargement without failure. Pelvis X-Ray 09/02/18 08:30 IMPRESSION: No acute findings Status: Imported from PACS Assessment & Plan - Diagnosis (1) Dementia Is this a current diagnosis for this admission?: Yes Plan: At baseline, patient is oriented to self and occasionally family members. He has been dependent and required 24-hour supervision for approximately 3 years due to his progressively worsening dementia. He has had a steep decline over the previous 6 months. Family member states that he often makes bizarre statements such as "there are people living in the bed." He has had several falls at home; requiring EMS response for assistance. They note that he is beginning to exceed his 's ability to care for him at home. Confirmed DNR/DNI status. They provided the MOlST form for review. Plan to d/c home with hospice tomorrow Supportive care; fall risk. Bed alarm. Soft limb restraints secondary to delirium with attempts to remove IV. Clear liquid diet with aspiration precautions; will advance as safety allows. (2) Diabetes Qualifiers: Diabetes mellitus type: type 2 Is this a current diagnosis for this admission?: Yes Plan: Hold metformin while inpatient. He is placed on a consistent carb diet. Accu-Cheks before meals and at bedtime with Humalog for sliding scale coverage. Hypoglycemia protocol in place. (3) Pneumonia of both lower lobes Qualifiers: Pneumonia type: due to unspecified organism Qualified Code(s): J18.1 - Lobar pneumonia, unspecified organism Is this a current diagnosis for this admission?: Yes Plan: Continue with current IV abx regimen plan to transition to po closer to discharge (4) Left ankle pain Qualifiers: Chronicity: acute Qualified Code(s): M25.572 - Pain in left ankle and joints of left foot Is this a current diagnosis for this admission?: Yes Plan: Secondary to fall. X-rays negative. Ice, elevate, darrel wrap for comfort. Lidoderm patches and Tylenol as needed for pain. - Time Time Spent with patient: 15-24 minutes Medications reviewed and adjusted accordingly: Yes Anticipated discharge: Home - Inpatient Certification Based on my medical assessment, after consideration of the patient's comorbidities, presenting symptoms, or acuity I expect that the services needed warrant INPATIENT care.: Yes I certify that my determination is in accordance with my understanding of Medicare's requirements for reasonable and necessary INPATIENT services [42 CFR 412.3e].: Yes Medical Necessity: Risk of Complication if Not Cared For in Hospital - Plan Summary Plan Summary: CONTINUE ABX. D/C HOME TOMORROW WITH [facility].
[2018-09-05] MEDS: TRAZODONE HCL 50 MG TABLET PO SCH (23:34)
[2018-09-05] MEDS: HALOPERIDOL LACTATE INJ 5 MG/1 ML VIAL IV PRN (23:34)
[2018-09-06 03:09] VITALS: BP 151/80
[2018-09-06] MEDS: HEPARIN SOD (PORCINE) 5,000 UNIT/ML 1 ML SYRINGE SUBCUT SCH ×2 (05:11→14:26)
[2018-09-06] MEDS: LANSOPRAZOLE 30 MG TAB.RAP.DR PO SCH (05:12)
[2018-09-06] MEDS: INSULIN LISPRO 100 UNIT/ML 3 ML VIAL SUBCUT SCH ×2 (08:19→11:57)
[2018-09-06] MEDS: IPRATROPIUM/ALBUTEROL 0.5-2.5 MG/3 ML AMPUL NEB SCH ×2 (08:59→16:30)
[2018-09-06] MEDS: GUAIFENESIN SYRP 200 MG/10 ML UDC PO SCH ×2 (09:58→14:27)
[2018-09-06] MEDS: AZITHROMYCIN 500 MG in DEXTROSE 5%-WATER 250 ML IV SCH (09:58)
[2018-09-06] MEDS: LOSARTAN POTASSIUM 50 MG TABLET PO SCH (09:58)
[2018-09-06] MEDS: VERAPAMIL HCL 240 MG TABLET.SA PO SCH (09:58)
[2018-09-06] MEDS: CHOLECALCIFEROL (D3) 1,000 UNIT TABLET PO SCH (09:58)
[2018-09-06] MEDS: ASPIRIN 81 MG TABLET, CHEWABLE PO SCH (09:58)
[2018-09-06] MEDS: TAMSULOSIN HCL 0.4 MG CAP.SR.24H PO SCH (09:58)
[2018-09-06] MEDS: LIDOCAINE 5% (700 MG) TRANSDERMAL ADH..PATCH TP SCH (09:59)
--- NOTE | 2018-09-06 10:41 | PDOC DISCHARGE SUMMARY ---
General - Admit/Disc Date/PCP Admission Date/Primary Care Provider: 09/02/18 10:43 Discharge Date: 09/06/18 - Discharge Diagnosis (1) Dementia Is this a current diagnosis for this admission?: Yes (2) Diabetes Is this a current diagnosis for this admission?: Yes (3) Pneumonia of both lower lobes Is this a current diagnosis for this admission?: Yes (4) Left ankle pain Is this a current diagnosis for this admission?: Yes - Additional Information Resuscitation Status: Do Not Resuscitate Discharge Diet: As Tolerated Discharge Activity: Activity As Tolerated Prescriptions: Levofloxacin [Levaquin 750 mg Tablet] 750 mg PO DAILY #3 tab Home Medications: Aspirin [Aspirin 81 mg Chewable Tablet] 81 mg PO DAILY 09/02/18 Atorvastatin Calcium [Lipitor 10 mg Tablet] 10 mg PO QHS 09/02/18 Cholecalciferol (Vitamin D3) [Vitamin D3 1000 Unit Tablet] 2,000 unit PO DAILY 09/02/18 Haloperidol [Haldol 0.5 mg Tablet] 0.5 mg PO QHS 09/02/18 Losartan Potassium [Cozaar 100 mg Tablet] 100 mg PO DAILY 09/02/18 Metformin HCl [Glucophage 500 mg Tablet] 500 mg PO DAILY 09/02/18 Omeprazole 20 mg PO Q6AM 09/02/18 Tamsulosin HCl [Flomax 0.4 mg Cap.sr] 0.4 mg PO QHS 09/02/18 Trazodone HCl [Desyrel 50 mg Tablet] 100 mg PO QHS 09/02/18 Verapamil HCl [Calan Sr 240 mg Tablet.sa] 240 mg PO DAILY 09/02/18 Levofloxacin [Levaquin 750 mg Tablet] 750 mg PO DAILY #3 tab 09/06/18 Tamsulosin HCl [Flomax 0.4 mg Cap.sr] 0.4 mg PO DAILY cap.sr.24h 09/06/18 Verapamil HCl [Calan Sr 240 mg Tablet.sa] 240 mg PO DAILY tablet.sa 09/06/18 History of Present Illness History of Present Illness: ANAND HORVATH is a 78 year old male with a past medical history of advanced dementia, CVA, brain aneurysms, AAA, hypertension, hyperlipidemia, DM 2, GERD, and chronic back pain presented to the emergency department by EMS after a fall at home. The patient's reports that the patient has fallen 4-5 times over the previous week. She reports that he has had increased lethargy, decreased appetite times 4 days, and little fluid intake over the last 24 hours. She reports that he has been running a low-grade temperature (100.2) and has had a nonproductive cough for 1-2 days. Evaluation in the emergency department revealed bibasilar pneumonia with leukocytosis (WBCs 13), baseline anemia (Hgb 12.6), unremarkable chemistry other than slightly elevated BUN (31), normal lactic acid, unremarkable urinalysis, and normal ankle and pelvic x-rays. He is referred to the hospitalist service for admission and management of pneumonia. The patient's , daughter, son-in-law expressed interest in meeting with a social work team to discuss palliative/hospice services as the patient's needs are now beginning to exceed his 's ability to care for him at home. They confirmed DNR/DNI status and request focus on comfort measures with addition of IV antibiotic therapies as indicated. Hospital Course Hospital Course: The patient s a 78 year old male with a past medical history of advanced dementia, CVA, brain aneurysms, AAA, hypertension, hyperlipidemia, DM 2, GERD, a nd chronic back pain who was admitted 09/02/18 for bibasilar pneumonia. The patient was treated with Azithromycin and Rocephin for community acquired pneumonia (CAP). Family expressed interest in placing the patient under hospice care. [facility] accepted the patient and agreed to make arrangements for home hospice. His clinical picture greatly improved over the course of 4 days. His vital signs had stabilized and his lungs were clear to auscultation. The patient was discharged home in the care of [facility]. He was sent home with a prescription for Levaquin, which he will need to take for 3 days in order to complete treatment for CAP. For further information regarding this patient's hospitalization, please refer to the EMR. Physical Exam Vital Signs: Temp Pulse Resp BP Pulse Ox 97.6 F 93 16 151/80 H 92 09/05/18 23:14 09/06/18 09:02 09/06/18 09:02 09/06/18 00:00 09/06/18 09:02 Intake & Output 09/05/18 09/06/18 09/07/18 06:59 06:59 06:59 Intake Total 1824 2231 Output Total 775 Balance 1049 2231 Weight 85.5 kg 82.8 kg Results Laboratory Results: 09/04/18 06:03 09/04/18 06:03 Impressions: Ankle X-Ray 09/02/18 08:14 IMPRESSION: NEGATIVE STUDY OF THE LEFT ANKLE. NO RADIOGRAPHIC EVIDENCE OF ACUTE INJURY. Chest X-Ray 09/02/18 08:14 IMPRESSION: Bibasilar pneumonia left greater than right. Cardiac enlargement without failure. Pelvis X-Ray 09/02/18 08:30 IMPRESSION: No acute findings Qualifiers - * PATIENT BEING DISCHARGED WITH ANY OF THE FOLLOWING DIAGNOSIS: No Plan Discharge Plan: HOME WITH HOSPICE. CONTINUE ABX FOR 3 DAYS. Time Spent: Less than 30 Minutes
[2018-09-06] MEDS: CEFTRIAXONE 1 GM/D5W RTU 1 GM/50 ML RTUPB IV SCH (12:11)
== END 2018-09-06 17:00 | disposition hospice, home (50) | DRG 195 ==
LOC: ER 07:44 → EH 10:43 → 4S 13:25
PROVIDERS: ADMIT Internal Medicine; ATTEND Internal Medicine
PROC: 3E0F3GC Introduction of Other Therapeutic Substance into Respiratory Tract, Percutaneous Approach (ICD-10-PCS; principal; 2018-09-02)
DX: J18.1 Lobar pneumonia, unspecified organism (principal); J44.9 Chronic obstructive pulmonary disease, unspecified; Z78.1 Physical restraint status; F03.90 Unspecified dementia, unspecified severity, without behavioral disturbance, psychotic disturbance, mood disturbance, and anxiety; D64.9 Anemia, unspecified; E11.9 Type 2 diabetes mellitus without complications; E78.5 Hyperlipidemia, unspecified; E66.3 Overweight; Z51.5 Encounter for palliative care; I10 Essential (primary) hypertension; K21.9 Gastro-esophageal reflux disease without esophagitis; M54.9 Dorsalgia, unspecified; G89.29 Other chronic pain; I71.4 Abdominal aortic aneurysm, without rupture; Z66 Do not resuscitate; M19.90 Unspecified osteoarthritis, unspecified site; W19.XXXA Unspecified fall, initial encounter; M25.572 Pain in left ankle and joints of left foot; Y92.019 Unspecified place in single-family (private) house as the place of occurrence of the external cause; Z91.81 History of falling; Z86.73 Personal history of transient ischemic attack (TIA), and cerebral infarction without residual deficits; Z79.84 Long term (current) use of oral hypoglycemic drugs; Z79.82 Long term (current) use of aspirin; Z68.22 Body mass index [BMI] 22.0-22.9, adult
CPT/HCPCS: 36415; 51701; 71045; 72170; 80048; 80053; 81001; 82962; 83605; 85025; 85027; 87040; 94667; 94668; 99285; J0360; J0456; J0696; J1630; J1644; J3490; J7030; J7060; J7620